=== PATIENT | male | born 1980 | race Caucasian/White ===

== ENCOUNTER 2020-05-08 02:57 | Emergency (ER) | payer MEDICAID ==
[~2020-05-08] VITALS: Ht 175.3 cm; Wt 104.3 kg
[2020-05-08 03:00] VITALS: BP_SYST 134
--- NOTE | 2020-05-08 03:00 | NUR ---
Patient to ER bed 4 to gown for evaluation. Side rails up.
--- NOTE | 2020-05-08 03:08 | NUR ---
Dr. Marin bedside for pt eval
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
[2020-05-08] MEDS ORDERED: KETOROLAC TROMETHAMINE 60 MG/2 ML VIAL IM ONE (03:15)
--- NOTE | 2020-05-08 03:41 | NUR ---
PORTABLE X-RAY AT THE BEDSIDE
[2020-05-08] MEDS ORDERED: MORPHINE 4 MG/ML INJ. SYRINGE IVP ONE (04:00)
--- NOTE | 2020-05-08 04:45 | NUR ---
[facility] OFFICERS RELEASING PT TO FAMILY AFTER MEDICAL CARE. FAMILY NOTIFIED
[2020-05-08] MEDS ORDERED: MORPHINE 2 MG/ML INJ. SYRINGE IVP ONE ×3 (05:45)
[2020-05-08] MEDS ORDERED: LORazepam 2 MG/ML VIAL IVP ONE ×2 (05:45)
--- NOTE | 2020-05-08 05:50 | NUR ---
AT THE BEDSIDE WITH DR. WANG FOR LEFT WRIST REDUCTION. PT MEDICATED FOR PAIN WITH MORPHINE AND ATIVAN FOR COMFORT MEASURES. SEE MAR FOR DOSAGES AND ADMINISTRATION. PT TOLERATED WELL. SPLINT APPLIED AND PT RESTING COMFORTABLE POST PROCEDURE
--- NOTE | 2020-05-08 06:29 | NUR ---
PORTABLE X-RAY AT THE BEDSIDE
--- NOTE | 2020-05-08 06:40 | NUR ---
DR WANG AT THE BEDSIDE FOR FURTHER REDUCTION. SPLINT REMOVED AND WRIST REDUCTION PERFORMED. PT DID NOT REQUIRE MORE PAIN MEDICATION AND TOLERATED WELL. NEW SPLIT PUT IN PLACE AND X-RAY AT THE BEDSIDE FOR CONFIRMATION.
--- NOTE | 2020-05-08 06:59 | NUR ---
REPORT GIVEN TO MARYA ACEVES FOR CONTINUING CARE
[2020-05-08 07:01] VITALS: BP_SYST 117
--- NOTE | 2020-05-08 07:02 | NUR ---
Patient given written and verbal discharge instructions and verbalizes understanding. ER MD discussed with patient the results and treatment provided. Patient in stable condition. ID arm band removed. IV catheter removed intact and dressing applied, no active bleeding. Rx of IBUPROFEN AND NORCO given. Patient educated on pain management and to follow up with PMD. Pain Scale 0/10. Opportunity for questions provided and answered. Medication side effect fact sheet provided.
== END 2020-05-08 07:02 | disposition home or self-care (01) ==
LOC: SED 02:57
DX: S52.592A Other fractures of lower end of left radius, initial encounter for closed fracture (principal); V29.9XXA Motorcycle rider (driver) (passenger) injured in unspecified traffic accident, initial encounter; Y93.89 Activity, other specified; Y92.413 State road as the place of occurrence of the external cause; Y99.8 Other external cause status
CPT/HCPCS: 25605; 72170; 73110; 96372; 99152; 99153; 99285; J1885; J2060; J2270 ×2